=== PATIENT | male | born 1980 | race African-American/Black ===

== ENCOUNTER 2016-12-18 14:47 | Emergency (ER) | payer SELFPAY ==
[2016-12-18 14:56] VITALS: BP 138/87; PULSE 103; RESP 20
[2016-12-18] MEDS ORDERED: ACETAMINOPHEN TAB 500 MG TAB PO STA (14:58)
--- NOTE | 2016-12-18 15:42 | XR ---
EXAMINATION TYPE: XR chest 2V DATE OF EXAM: 12/18/2016 3:34 PM COMPARISON: NONE HISTORY: Pain TECHNIQUE: Frontal and lateral views of the chest are obtained. FINDINGS: There is no focal air space opacity, pleural effusion, or pneumothorax seen. The cardiac silhouette size is within normal limits. The osseous structures are intact. IMPRESSION: No acute cardiopulmonary process.
[2016-12-18] MEDS ORDERED: OSELTAMIVIR 75 MG CAP PO STA (16:05)
--- NOTE | 2016-12-18 16:08 | ED ---
URI HPI - General Chief Complaint: Upper Respiratory Infection Stated Complaint: Cough Time Seen by Provider: 12/18/16 14:58 Source: patient, RN notes reviewed Mode of arrival: ambulatory Limitations: no limitations - History of Present Illness Initial Comments: Patient is a 36-year-old male chief complaint of cough, sore throat and eye pain and fever for approximately one day. He reports that other family members of been sick with the flu. He states that he is a smoker. Patient reports that he feels just diffuse body aches. Patient reports he took a Motrin last night but no Motrin Tylenol today. Patient currently has a fever 101.9. Patient's stating that he has no significant past medical history. He reports his cough has been nonproductive. Patient denies any recent fever, chills, shortness of breath, chest pain, back pain, abdominal pain, nausea vomiting, numbness or tingling, dysuria or hematuria, constipation or diarrhea, headaches or visual changes, or any other current symptoms - Related Data Previous Rx's Medication Instructions Recorded ALPRAZolam [Xanax] 2 mg PO HS #7 tab 02/06/16 Acetaminophen Tab [Tylenol Tab] 650 mg PO Q6H #30 tablet 12/18/16 Ibuprofen [Motrin] 600 mg PO Q6HR PRN #20 tab 12/18/16 Oseltamivir [Tamiflu] 75 mg PO Q12HR #10 cap 12/18/16 Allergies Allergy/AdvReac Type Severity Reaction Status Date / Time No Known Allergies Allergy Verified 02/06/16 17:29 Review of Systems ROS Statement: Those systems with pertinent positive or pertinent negative responses have been documented in the HPI. ROS Other: All systems not noted in ROS Statement are negative. Past Medical History Past Medical History: No Reported History History of Any Multi-Drug Resistant Organisms: None Reported Past Surgical History: Hernia Repair Additional Past Surgical History / Comment(s): tendon repair right thumb Past Psychological History: Anxiety Smoking Status: Current every day smoker Past Alcohol Use History: None Reported Past Drug Use History: Marijuana General Exam - General Exam Comments Initial Comments: Patient is an ill-appearing 36-year-old male. He doesn't appear to be in any acute distress Limitations: no limitations General appearance: alert, in no apparent distress Head exam: Present: atraumatic, normocephalic, normal inspection Eye exam: Present: normal appearance, PERRL, EOMI. Absent: scleral icterus, conjunctival injection, periorbital swelling ENT exam: Present: normal exam, mucous membranes moist Neck exam: Present: normal inspection. Absent: tenderness, meningismus, lymphadenopathy Respiratory exam: Present: normal lung sounds bilaterally. Absent: respiratory distress, wheezes, rales, rhonchi, stridor Cardiovascular Exam: Present: regular rate, normal rhythm, normal heart sounds. Absent: systolic murmur, diastolic murmur, rubs, gallop, clicks GI/Abdominal exam: Present: soft, normal bowel sounds. Absent: distended, tenderness, guarding, rebound, rigid Extremities exam: Present: normal inspection, full ROM, normal capillary refill. Absent: tenderness, pedal edema, joint swelling, calf tenderness Back exam: Present: normal inspection Neurological exam: Present: alert, oriented X3, CN II-XII intact Psychiatric exam: Present: normal affect, normal mood Skin exam: Present: warm, dry, intact, normal color. Absent: rash Course Vital Signs 12/18/16 12/18/16 14:54 16:14 Temperature 101.9 F H 102.1 F H Pulse Rate 103 H Respiratory 20 Rate Blood Pressure 138/87 O2 Sat by Pulse 100 Oximetry Medical Decision Making - Medical Decision Making Patient is a 36-year-old male with 1 day of body aches, eye drainage and sore throat. He also reports a mild nonproductive cough. Chest x-ray was reviewed and is negative for any acute process. Patient does test positive for influenza B. He was given a dose of Tylenol in the emergency department. Patient was instructed on the results. I discussed dosing him for the patient. Patient states that he would like to able to take it. I did advise alternating tree Motrin Tylenol every 4-6 hours for fever and pain. Patient advised to return to the emergency department or follow-up with primary care provider if symptoms continue to persist her. Patient understands treatment plan will comply. - Lab Data Lab Results 12/18/16 12/18/16 Range/Units 15:21 15:21 Influenza Type A RNA Not Detected (Not Detectd) Influenza Type B (PCR) Detected A (Not Detectd) Group A Strep Rapid Negative (Negative) - Radiology Data Radiology results: report reviewed CXR reviewed and is negative for any acute process. Disposition Clinical Impression: Influenza B Disposition: HOME SELF-CARE Condition: Good Instructions: Influenza (ED) Additional Instructions: Patient advised to rest, increase fluids and to take antiviral medication as prescribed. Patient is to alternate Motrin Tylenol every 4-6 hours. Return to the emergency department if any alarming signs or symptoms occur. Prescriptions: Acetaminophen Tab [Tylenol Tab] 650 mg PO Q6H #30 tablet Ibuprofen [Motrin] 600 mg PO Q6HR PRN #20 tab PRN Reason: Fever Oseltamivir [Tamiflu] 75 mg PO Q12HR #10 cap Referrals: Maura Barrios MD [REFERRING] - 1-2 days Time of Disposition: 16:08
[2016-12-18 16:15] VITALS: TEMP 102.1
== END 2016-12-18 16:20 | disposition home or self-care (01) ==
LOC: EC 14:47
DX: J10.1 Influenza due to other identified influenza virus with other respiratory manifestations (principal); H57.10 Ocular pain, unspecified eye; M79.1 Myalgia; F17.200 Nicotine dependence, unspecified, uncomplicated
CPT/HCPCS: 71020; 87081; 87430; 87502; 99283

== ENCOUNTER 2017-05-27 11:50 | Emergency (ER) | payer OTHER ==
[2017-05-27 11:57] VITALS: PULSE 84; RESP 18; TEMP 97.6
[2017-05-27] MEDS ORDERED: SODIUM CHLORIDE 0.9% 500 ML IV STA (12:16)
[2017-05-27 12:28] LABS: Basophils % (A) 0 %; CH 28.8; CHCM 32.3; Eosinophils # (A) 0.3 k/uL (0-0.7); Eosinophils % (A) 3 %; HCT 36.8 % (39.0-53.0); HDW 2.17; HGB 12.1 gm/dL (13.0-17.5); Luc # (Auto) 0.19; Luc % (Auto) 2; Lymphocytes # (A) 2.1 k/uL (1.0-4.8); Lymphocytes % (A) 26 %; MCH 29.6 pg (25.0-35.0); MCV 89.6 fL (80.0-100.0); Mean Platelet Volume 7.5; Monocytes # (A) 0.5 k/uL (0-1.0); Monocytes % (A) 6 %; Neutrophils # (A) 5.2 k/uL (1.3-7.7); Neutrophils % (A) 62 %; WBC 8.3 k/uL (3.8-10.6); WBC (Perox) 8.22
[2017-05-27] MEDS ORDERED: ASPIRIN 81 MG CHEW PO STA (12:33)
[2017-05-27 12:40] LABS: Appearance,Urine Clear (Clear); Bilirubin,Urine Negative (Negative); Glucose,Urine (UA) Trace (Negative); Ketones,Urine Negative (Negative); Leukocyte Esterase,Urine Negative (Negative); Nitrite,Urine Negative (Negative); PH, Urine 5.5 (5.0-8.0); Protein,Urine Trace (Negative); Specific Gravity,Urine 1.025 (1.001-1.035); UA Billing (MACRO vs. MICRO) CHEM; Urobilinogen,Urine <2.0 mg/dL (<2.0)
[2017-05-27 12:48] LABS: ALT 22 U/L (21-72); AST 15 U/L (17-59); Alkaline Phosphatase 45 U/L (38-126); Anion Gap 9 mmol/L; Blood Urea Nitrogen 12 mg/dL (9-20); Calcium 8.5 mg/dL (8.4-10.2); Carbon Dioxide 24 mmol/L (22-30); Chloride 108 mmol/L (98-107); Glucose 109 mg/dL (74-99); Potassium 3.5 mmol/L (3.5-5.1); Sodium 141 mmol/L (137-145); Total Bilirubin 0.3 mg/dL (0.2-1.3)
[2017-05-27 12:52] VITALS: BP 163/109
[2017-05-27 13:03] LABS: Non-African American GFR(MDRD) >60 (>60 ml/min/1.73 sqM)
[2017-05-27 13:12] LABS: Creatine Kinase 172 U/L (55-170)
--- NOTE | 2017-05-27 13:19 | ED ---
Seizure HPI - General Chief Complaint: Seizure Stated Complaint: Seizure Time Seen by Provider: 05/27/17 12:06 Source: patient, EMS, RN notes reviewed Mode of arrival: EMS Limitations: no limitations - History of Present Illness Initial Comments: 37-year-old male present emergency department via EMS for possible seizure. Patient reportedly was shaking witnessed by girlfriend per EMS report. Patient has a history of seizures and he states this is from Xanax withdrawal. Patient has not been prescribed Xanax in over a year but states that he buys off the street and usually takes it. Patient states he has not taken any in over 8-9 days. Patient did admit to using cocaine this morning. Patient states that he just needs a prescription for Xanax. Patient did have report that he was postictal or confused but he was awake and talking. Patient is not confused at this time. Patient does complain of mild headache and some chest discomfort. But states that he normally does have this denies any nausea vomiting. Denies focal weakness. - Related Data Home Medications Medication Instructions Recorded Confirmed No Known Home Medications [No 05/27/17 05/27/17 Known Home Medications] Allergies Allergy/AdvReac Type Severity Reaction Status Date / Time No Known Allergies Allergy Verified 05/27/17 12:53 Review of Systems ROS Statement: Those systems with pertinent positive or pertinent negative responses have been documented in the HPI. ROS Other: All systems not noted in ROS Statement are negative. Past Medical History Past Medical History: Hypertension, Seizure Disorder History of Any Multi-Drug Resistant Organisms: None Reported Past Surgical History: Hernia Repair Additional Past Surgical History / Comment(s): tendon repair right thumb Past Psychological History: Anxiety Smoking Status: Current every day smoker Past Alcohol Use History: None Reported Past Drug Use History: Cocaine, Marijuana General Exam Limitations: no limitations General appearance: alert, in no apparent distress Head exam: Present: atraumatic, normocephalic, normal inspection Eye exam: Present: normal appearance, PERRL, EOMI. Absent: scleral icterus, conjunctival injection, periorbital swelling ENT exam: Present: normal exam, normal oropharynx, mucous membranes moist Neck exam: Present: normal inspection, full ROM. Absent: tenderness, meningismus, lymphadenopathy Respiratory exam: Present: normal lung sounds bilaterally. Absent: respiratory distress, wheezes, rales, rhonchi, stridor Cardiovascular Exam: Present: regular rate, normal rhythm, normal heart sounds. Absent: systolic murmur, diastolic murmur, rubs, gallop, clicks GI/Abdominal exam: Present: soft, normal bowel sounds. Absent: distended, tenderness, guarding, rebound, rigid Neurological exam: Present: alert, oriented X3, CN II-XII intact, reflexes normal. Absent: motor sensory deficit Skin exam: Present: warm, dry, intact, normal color. Absent: rash Course Vital Signs 05/27/17 11:50 Temperature 97.6 F Pulse Rate 84 Respiratory 18 Rate Blood Pressure 132/88 O2 Sat by Pulse 100 Oximetry Medical Decision Making - Medical Decision Making Patient is awake alert and orientated patient is in no distress at this time patient is coming angry that he is here and requests to be discharged. I did advise him that I will not discharge patient because I have concerns about cardiac issues secondary to cocaine use and his seizure. Patient states that nobody will stop him from leaving I did explain that he may be having a heart attack. I did explain that he does believe he may and He does understand. I did explain that unemotional all he cannot drive for 6 months until cleared by neurology. - Lab Data Result diagrams: 05/27/17 12:01 Lab Results 05/27/17 05/27/17 Range/Units 12:01 12:20 WBC 8.3 (3.8-10.6) k/uL RBC 4.10 L (4.30-5.90) m/uL Hgb 12.1 L (13.0-17.5) gm/dL Hct 36.8 L (39.0-53.0) % MCV 89.6 (80.0-100.0) fL MCH 29.6 (25.0-35.0) pg MCHC 33.0 (31.0-37.0) g/dL RDW 14.0 (11.5-15.5) % Plt Count 233 (150-450) k/uL Neutrophils % 62 % Lymphocytes % 26 % Monocytes % 6 % Eosinophils % 3 % Basophils % 0 % Neutrophils # 5.2 (1.3-7.7) k/uL Lymphocytes # 2.1 (1.0-4.8) k/uL Monocytes # 0.5 (0-1.0) k/uL Eosinophils # 0.3 (0-0.7) k/uL Basophils # 0.0 (0-0.2) k/uL Urine Color Yellow Urine Appearance Clear (Clear) Urine pH 5.5 (5.0-8.0) Ur Specific [place] 1.025 (1.001-1.035) Urine Protein Trace H (Negative) Urine Glucose (UA) Trace H (Negative) Urine Ketones Negative (Negative) Urine Blood Negative (Negative) Urine Nitrite Negative (Negative) Urine Bilirubin Negative (Negative) Urine Urobilinogen <2.0 (<2.0) mg/dL Ur Leukocyte Esterase Negative (Negative) 05/27/17 12:52 EKG performed at 12:29 normal sinus rhythm with a rate of 76 CA interval 174 QS duration 102 QT/QTC 384/432 EKG wound was reviewed with Dr. Menard and faxed to cardiology at this time Disposition Clinical Impression: Generalized seizure, Cocaine abuse, Chest pain Disposition: Left Against Medical Advice Condition: Fair Referrals: None,Stated [Primary Care Provider] - 1-2 days
[2017-05-27 13:25] LABS: Creatine Kinase MB 0.9 ng/mL (0.0-2.4); Troponin I <0.012 ng/mL (0.000-0.034)
== END 2017-05-27 12:53 | disposition left against medical advice (07) ==
LOC: EC 11:50
DX: G40.409 Other generalized epilepsy and epileptic syndromes, not intractable, without status epilepticus (principal); F14.10 Cocaine abuse, uncomplicated; R07.9 Chest pain, unspecified; F17.200 Nicotine dependence, unspecified, uncomplicated; Z53.29 Procedure and treatment not carried out because of patient's decision for other reasons
CPT/HCPCS: 36415; 80053; 80306; 81003; 82550; 82553; 84484; 85025; 93005; 99284

== ENCOUNTER 2017-05-28 03:24 | Emergency (ER) | payer OTHER ==
[2017-05-28 03:58] LABS: Basophils # (A) 0.1 k/uL (0-0.2); Basophils % (A) 1 %; CH 28.8; CHCM 31.9; Eosinophils # (A) 0.3 k/uL (0-0.7); Eosinophils % (A) 3 %; HCT 40.6 % (39.0-53.0); HDW 2.19; HGB 13.2 gm/dL (13.0-17.5); Luc # (Auto) 0.15; Luc % (Auto) 1; Lymphocytes # (A) 1.9 k/uL (1.0-4.8); Lymphocytes % (A) 18 %; MCH 29.4 pg (25.0-35.0); MCHC 32.5 g/dL (31.0-37.0); MCV 90.6 fL (80.0-100.0); Mean Platelet Volume 7.3; Monocytes # (A) 0.5 k/uL (0-1.0); Monocytes % (A) 5 %; Neutrophils # (A) 7.5 k/uL (1.3-7.7); Neutrophils % (A) 72 %; RBC 4.48 m/uL (4.30-5.90); RDW 13.9 % (11.5-15.5); WBC 10.5 k/uL (3.8-10.6)
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
[2017-05-28 04:10] LABS: Prothrombin Time 10.6 sec (9.0-12.0)
[2017-05-28 04:12] LABS: ALT 21 U/L (21-72); AST 19 U/L (17-59); Alkaline Phosphatase 55 U/L (38-126); Anion Gap 12 mmol/L; Blood Urea Nitrogen 10 mg/dL (9-20); Calcium 9.4 mg/dL (8.4-10.2); Carbon Dioxide 24 mmol/L (22-30); Chloride 106 mmol/L (98-107); Glucose 105 mg/dL (74-99); Non-African American GFR(MDRD) >60 (>60 ml/min/1.73 sqM); Potassium 4.1 mmol/L (3.5-5.1); Sodium 142 mmol/L (137-145); Total Bilirubin 0.5 mg/dL (0.2-1.3); Total Protein 6.9 g/dL (6.3-8.2)
[2017-05-28 04:23] LABS: Creatine Kinase 180 U/L (55-170)
--- NOTE | 2017-05-28 04:24 | XR ---
EXAM: XR Chest, 1 View CLINICAL HISTORY: Reason: chest pain TECHNIQUE: Frontal view of the chest. COMPARISON: 12/18/16 FINDINGS: Lungs: Unremarkable. No consolidation. Pleural space: Unremarkable. No pneumothorax. Heart: Unremarkable. No cardiomegaly. Mediastinum: Unremarkable. Bones/joints: Unremarkable. Tubes, lines and devices: Overlying chest leads obscure portion of the chest. IMPRESSION: No acute pulmonary disease
[2017-05-28 04:36] LABS: Creatine Kinase MB 1.1 ng/mL (0.0-2.4); Troponin I <0.012 ng/mL (0.000-0.034)
[2017-05-28 05:18] VITALS: BP 154/97; PULSE 81; RESP 18; TEMP 98
== END 2017-05-28 05:18 | disposition left against medical advice (07) ==
LOC: EC 03:24
DX: R07.2 Precordial pain (principal); R55 Syncope and collapse; F17.200 Nicotine dependence, unspecified, uncomplicated; W19.XXXA Unspecified fall, initial encounter
CPT/HCPCS: 36415; 71010; 80053; 82550; 82553; 83735; 84484; 85025; 85610; 85730; 93005; 99285